=== PATIENT | female | born 1940 | race Caucasian/White ===

== ENCOUNTER → 2018-05-27 | Outpatient (CLI) | payer OTHER, MEDICARE | LOC: BHLMT 11:30 | PROVIDERS: ATTEND Internal Medicine Interventional Cardiology | DX: I48.0 Paroxysmal atrial fibrillation (principal) | CPT/HCPCS: 93005-PO ==

== ENCOUNTER → 2018-08-01 | Outpatient (CLI) | payer OTHER, MEDICARE | LOC: GIMAGING 10:45 | PROVIDERS: ATTEND Nurse Practitioner Family | DX: R05 Cough (principal); R06.02 Shortness of breath; R50.9 Fever, unspecified; M40.204 Unspecified kyphosis, thoracic region; M85.80 Other specified disorders of bone density and structure, unspecified site | CPT/HCPCS: 71046-PO ==